=== PATIENT | female | born 1990 | race Caucasian/White ===

== ENCOUNTER 2018-03-25 23:13 | Emergency (ER) | payer BC ==
[~2018-03-25] VITALS: Ht 160 cm; Wt 108.9 kg
[2018-03-26 00:10] LABS: BASOPHILS ABSOLUTE AUTO 0.03 K/mm3 (0.00-0.23); BASOPHILS PERCENT AUTO 0 % (0-2); EOSINOPHILS ABSOLUTE AUTO 0.04 K/mm3 (0.00-0.68); EOSINOPHILS PERCENT AUTO 0 % (0-6); Hematocrit 42.2 % (33.0-51.0); Hemoglobin 13.9 g/dL (11.5-16.0); IMMATURE GRAN ABSOLUTE AUTO 0.03 K/mm3 (0.00-0.10); IMMATURE GRAN PERCENT AUTO 0 % (0-1); LYMPHOCYTES ABSOLUTE AUTO 1.71 K/mm3 (0.84-5.20); LYMPHOCYTES PERCENT AUTO 13 % (21-46); MONOCYTES ABSOLUTE AUTO 0.78 K/mm3 (0.16-1.47); MONOCYTES PERCENT AUTO 6 % (4-13); Mean Corpuscular HGB 29.5 pg (26.0-34.0); Mean Corpuscular HGB Conc 32.9 g/dL (31.5-36.5); Mean Corpuscular Volume 90 fL (80-100); NEUTROPHILS ABSOLUTE AUTO 10.43 K/mm3 (1.96-9.15); NEUTROPHILS PERCENT AUTO 80 % (41-73); Platelet Count 349 K/mm3 (150-400); RDW Standard Deviation 39.6 fL (35.1-46.3); Red Blood Cell Count 4.71 M/mm3 (3.80-5.20); White Blood Cell Count 13.02 K/mm3 (4.00-11.30)
[2018-03-26 00:28] LABS: Alanine Aminotransfer (ALT/SGP 73 U/L (12-78); Albumin, Blood 3.7 g/dL (3.4-5.0); Alk Phos 56 U/L (50-136); Anion Gap 11 mmol/L (6-16); Aspartate Aminotrans (AST/SGOT 29 U/L (12-37); Bilirubin, Total 0.5 mg/dL (0.1-1.0); Blood Urea Nitrogen 7 mg/dL (8-24); Bun/Creatinine Ratio 11.5 (12.0-20.0); CO2, Blood 21 mmol/L (21-32); Calcium, Blood 8.7 mg/dL (8.5-10.1); Chloride, Blood 107 mmol/L (98-108); Creatinine, Blood 0.61 mg/dL (0.40-1.00); Globulin, Blood 3.8 g/dL (2.2-4.0); Glomerular Filtration Rate >60 (60-); Glucose, Blood 92 mg/dL (70-99); Potassium, Blood 3.7 mmol/L (3.5-5.5); Sodium, Blood 139 mmol/L (136-145); Total Protein, Blood 7.5 g/dL (6.4-8.2)
[2018-03-26] MEDS ORDERED: Verotin-Gr Cap1 EACH PO (01:46)
[2018-03-26 03:32] LABS: Source, Urine Clean Catch
[2018-03-26 03:34] LABS: Blood, Urine 1+ (Neg); Glucose Qualitative, Urine Neg (Neg); Ketones, Urine 4+ (Neg); Leukocyte Esterase, Urine 1+ (Neg); Nitrite, Urine Pos (Neg); Protein, Urine 2+ (Neg); Urobilinogen, Urine 2+ (Normal)
[2018-03-26 03:36] LABS: Appearance, Urine Hazy (Clear); Bilirubin, Urine 1+ (Neg); Color, Urine Amber (P-Yellow)
[2018-03-26 03:41] LABS: Amorphous Light (0-Heavy); Bacteria Few /hpf; Mucus Mod (0-Heavy); Red Blood Cells, Urine 0-2 /hpf (0-2); Squamous Epithelial Cells Few /hpf (Few)
== END 2018-03-26 05:28 | disposition home or self-care (01) ==
LOC: ER 23:13
PROVIDERS: Emergency Medicine
DX: O21.9 Vomiting of pregnancy, unspecified (principal); O23.41 Unspecified infection of urinary tract in pregnancy, first trimester; Z3A.10 10 weeks gestation of pregnancy; Z79.899 Other long term (current) drug therapy
CPT/HCPCS: 36415; 80053; 81001; 81025; 85025; 87086; 96361; 96374; 96375; 99283; J2405; J3490; J7030

== ENCOUNTER → 2018-03-29 | Outpatient (CLI) | payer BC ==
[~2018-03-29] MED LIST: Verotin-Gr Cap1 EACH PO
[2018-04-12 12:28] LABS: CHLAMYDIA BY NAA Negative (Negative); GONOCOCCUS BY NAA Negative (Negative); TRICH VAG BY NAA Negative (Negative)
== END | disposition home or self-care (01) ==
LOC: LAB 15:46 → LAB SHORT 15:46
PROVIDERS: Obstetrics & Gynecology
DX: Z36.89 Encounter for other specified antenatal screening (principal)
CPT/HCPCS: 87491; 87591; 87661; G0123

== ENCOUNTER → 2018-09-23 | Outpatient (CLI) | payer BC ==
[~2018-09-23] MED LIST changes: +Amoxicillin875 MG PO; +BENA20 PO; +FURO40 PO; +Ferrous Sulfat325 M2 PO; +Humalog100 UNIT/1; +IBUP800; +METO25ER PO; +POTA10T PO; +Percocet 5-3251 EACH PO; +TUMS DUAL ACTI1 EACH PO; +UNISOM25 MG PO
== END | disposition home or self-care (01) ==
LOC: LAB 17:02 → LAB SHORT 17:02
DX: Z34.00 Encounter for supervision of normal first pregnancy, unspecified trimester (principal)
CPT/HCPCS: 87081; 87653

== ENCOUNTER 2018-10-12 15:20 | Inpatient (IN) | payer BC ==
[~2018-10-12] VITALS: Ht 160 cm; Wt 118.8 kg
[~2018-10-12 15:20] MED LIST changes: -Amoxicillin875 MG PO; -BENA20 PO; -FURO40 PO; -Ferrous Sulfat325 M2 PO; -Humalog100 UNIT/1; -IBUP800; -METO25ER PO; -POTA10T PO; -Percocet 5-3251 EACH PO; -TUMS DUAL ACTI1 EACH PO; -UNISOM25 MG PO
[2018-10-12] MEDS ORDERED: Humalog100 UNIT/1 (17:07)
[2018-10-12] MEDS ORDERED: UNISOM25 MG PO (17:07)
[2018-10-12] MEDS ORDERED: TUMS DUAL ACTI1 EACH PO (17:08)
[2018-10-12 17:12] LABS: BASOPHILS ABSOLUTE AUTO 0.02 K/mm3 (0.00-0.23); BASOPHILS PERCENT AUTO 0 % (0-2); EOSINOPHILS ABSOLUTE AUTO 0.05 K/mm3 (0.00-0.68); EOSINOPHILS PERCENT AUTO 1 % (0-6); Hematocrit 34.2 % (33.0-51.0); Hemoglobin 10.7 g/dL (11.5-16.0); IMMATURE GRAN ABSOLUTE AUTO 0.05 K/mm3 (0.00-0.10); IMMATURE GRAN PERCENT AUTO 1 % (0-1); LYMPHOCYTES ABSOLUTE AUTO 1.04 K/mm3 (0.84-5.20); LYMPHOCYTES PERCENT AUTO 10 % (21-46); MONOCYTES ABSOLUTE AUTO 0.75 K/mm3 (0.16-1.47); MONOCYTES PERCENT AUTO 7 % (4-13); Mean Corpuscular HGB Conc 31.3 g/dL (31.5-36.5); Mean Corpuscular Volume 86 fL (80-100); Mean Platelet Volume 12.4 fL (9.1-12.4); NEUTROPHILS ABSOLUTE AUTO 8.47 K/mm3 (1.96-9.15); NEUTROPHILS PERCENT AUTO 82 % (41-73); Platelet Count 253 K/mm3 (150-400); RDW Standard Deviation 43.7 fL (35.1-46.3); Red Blood Cell Count 3.97 M/mm3 (3.80-5.20); White Blood Cell Count 10.38 K/mm3 (4.00-11.30)
--- NOTE | 2018-10-12 17:24 | NUR ---
LABS DRAWN FROM IV START PER PROTOCOL
--- NOTE | 2018-10-12 21:19 | NUR ---
CBG OF 79 DID NOT FLOW TO [facility]
--- NOTE | 2018-10-13 01:56 | NUR ---
10/13/18 0156 Shanna Nagy PT ENTERED OR WITH MCLEOD CATHETER AND MEFOXIN 2GM STARTED AT 0126
[2018-10-13 01:57] LABS: PCO2 Cord - Arterial 49.5 mmHg (40-50)
[2018-10-13 01:59] LABS: PCO2 Cord - Venous 38.7 mmHg (40-50); PO2 Cord - Venous 24.8 mmHg (28-32); pH Umbilical Cord - Venous 7.35 (7.26-7.35)
--- NOTE | 2018-10-13 02:07 | NUR ---
10/13/18 0130: RT ON STAND BY FOR FOR FAILURE TO PROGRESS. ALL EQUIPMENT AND WARMER WAS CHECK PRIOR TO AND FUCTIONING PROPERLY. BABY BORN AT 0146, HAD GOOD STRONG INITIAL CRY. BABY WAS LORELEI TO WARMER AND WAS DRIED AND STIMULATED BY RT AND RN. BABY HAD GOOD CRY, STRONG RESP EFFORT, GOOD TONE, HR IS 150, SOME ACROCYNOSIS NOTED IN LEGS/FEET AND HANDS. NO RESP INTERVENTIONS NEEDED AT THIS TIME, BABY WAS TRANSITIONING WELL. CORDS WERE TAKEN FOR BLOOD GASES. RT PRESENT AT : ANAND, [employer]
[2018-10-13 08:38] LABS: Hematocrit 29.2 % (33.0-51.0); Hemoglobin 9.1 g/dL (11.5-16.0); Mean Corpuscular HGB 26.8 pg (26.0-34.0); Mean Corpuscular HGB Conc 31.2 g/dL (31.5-36.5); Mean Corpuscular Volume 86 fL (80-100); Mean Platelet Volume 12.5 fL (9.1-12.4); Platelet Count 243 K/mm3 (150-400); RDW Coefficient Variation 14.2 % (11.7-14.2); RDW Standard Deviation 44.3 fL (35.1-46.3); White Blood Cell Count 12.58 K/mm3 (4.00-11.30)
--- NOTE | 2018-10-13 14:43 | NUR ---
ASSIST BABY SLEEPING IN MOM'S ARMS, RN REPORTS BABY LATCHES WELL BKUT BABY ONLY SUCKS FOR ABOUT 10 SUCKS OR SO THEN GOES BACK TO SLEEP. DEMONSTRATED HAND EXPRESSION OF CLOSTROM AND SPOON FEEDING. IF BABY ONLY NURSES FOR A MINUTE OR SO. MOM CAN HAND EXPRESS AND SPOON FEED IF SHE DESIRES. DEMONSTRAED PILLOW PLACEMENT FOR FOKOTBALL HOLD. NEW BEGINNINGS BOOK AND BOOK DEMONSTRATED. GENERAL ED DONE. I ENCOURAGE MOM TO MASSAGE BREASTS DURING FEEDING TO TRY TO KEEP BABY SUCKING FOR A LONGER PERIODS.
--- NOTE | 2018-10-13 16:23 | NUR ---
navas dcd, pas off, pt was wanting to get up to shower, but couldnt stand for very long. bed change, deepthi care done, pt is aware that needs to void in 6 hours, pt requested navas out and to shower, she didnt realize it would hurt so much getting up. pt was medicated 1 hr ago with tordal and 2 hrs with 2 percocet, will gt pt up with in 6 hrs to void
--- NOTE | 2018-10-15 09:25 | NUR ---
ASSIST MOM HAS SOME BRUISING ON NIPPLES, BABY IS SLEEPING SOUNDLY AT THIS TIME. DEMONSTRATED HOLDS, COMPRESSING NIPPLES AND HOLDS. DISCUSSED CORRECT MOUTH PLACEMENT. MOM TO CALL WHEN BABY LATCHES FOR ASSIST IF NEEDED. MOM IS CONCERNED THAT SHE MAY GET BREAK DOWN ON NIPPLES. PT. IS AWARE THAT IF SHE DOES GET BLEEDING ON NIPPLES SHE WILL HAVE TO PUMP AND DUMP. I WILLCHECK BACK LATER AND HOPEFULLY OBSEREVE LATCH. BOTH PARENTS VERY INVOMVED WITH BABY. I ENCOURAGED SKIN TO SKIN WHEN MOM IS AWAKE.
--- NOTE | 2018-10-15 12:48 | NUR ---
DISCHARGE INSTRUCTIONS REVIEWED WITH PATIENT. ALL QUESTIONS AND CONCERNS ANSWERED.
[2018-10-15] MEDS ORDERED: IBUP800 (12:49)
[2018-10-15] MEDS ORDERED: Percocet 5-3251 EACH PO (12:50)
--- NOTE | 2018-10-15 13:59 | NUR ---
PATIENT DISCHARGED HOME AND WAS ESCORTED TO HER VEHICLE AT 1335.
== END 2018-10-15 13:40 | disposition home or self-care (01) | DRG 788 ==
LOC: OBS 15:20 → BC 15:23 → OBS 15:31 → BC 15:33
PROVIDERS: Obstetrics & Gynecology; ADMIT Obstetrics & Gynecology
PROC: 3E0R3BZ Introduction of Anesthetic Agent into Spinal Canal, Percutaneous Approach (ICD-10-PCS; 2018-10-13)
PROC: 10D00Z1 Extraction of Products of Conception, Low, Open Approach (ICD-10-PCS; principal; 2018-10-13 01:30)
DX: O24.424 Gestational diabetes mellitus in childbirth, insulin controlled (principal); Z3A.38 38 weeks gestation of pregnancy; Z37.0 Single live birth; O62.1 Secondary uterine inertia; O36.63X0 Maternal care for excessive fetal growth, third trimester, not applicable or unspecified
CPT/HCPCS: 36415; 51702; 82803; 82947; 85025; 85027; 86850; 86900; 86901; C9113; J0694; J1885; J2405; J2590; J2765; J3010; J7120

== ENCOUNTER 2018-10-17 12:46 | Inpatient (IN) | payer BC ==
[~2018-10-17] VITALS: Ht 160 cm; Wt 114.1 kg
[~2018-10-17 12:46] MED LIST changes: +Humalog100 UNIT/1; +IBUP800; +Percocet 5-3251 EACH PO; +TUMS DUAL ACTI1 EACH PO; +UNISOM25 MG PO
[2018-10-17] MEDS ORDERED: Ferrous Sulfat325 M2 PO (13:14)
[2018-10-17 13:35] LABS: BASOPHILS ABSOLUTE AUTO 0.03 K/mm3 (0.00-0.23); BASOPHILS PERCENT AUTO 0 % (0-2); EOSINOPHILS ABSOLUTE AUTO 0.17 K/mm3 (0.00-0.68); EOSINOPHILS PERCENT AUTO 2 % (0-6); Hematocrit 33.7 % (33.0-51.0); Hemoglobin 10.1 g/dL (11.5-16.0); IMMATURE GRAN ABSOLUTE AUTO 0.09 K/mm3 (0.00-0.10); IMMATURE GRAN PERCENT AUTO 1 % (0-1); LYMPHOCYTES ABSOLUTE AUTO 0.88 K/mm3 (0.84-5.20); LYMPHOCYTES PERCENT AUTO 8 % (21-46); MONOCYTES ABSOLUTE AUTO 0.63 K/mm3 (0.16-1.47); MONOCYTES PERCENT AUTO 6 % (4-13); Mean Corpuscular HGB 26.8 pg (26.0-34.0); Mean Platelet Volume 10.9 fL (9.1-12.4); NEUTROPHILS ABSOLUTE AUTO 8.88 K/mm3 (1.96-9.15); NEUTROPHILS PERCENT AUTO 83 % (41-73); Platelet Count 387 K/mm3 (150-400); RDW Coefficient Variation 14.6 % (11.7-14.2); RDW Standard Deviation 47.1 fL (35.1-46.3); Red Blood Cell Count 3.77 M/mm3 (3.80-5.20); White Blood Cell Count 10.68 K/mm3 (4.00-11.30)
[2018-10-17 13:38] LABS: Mean Corpuscular Volume 89 fL (80-100)
[2018-10-17 13:50] LABS: Creatinine (POC) 0.4 mg/dL (0.6-1.0)
[2018-10-17 13:52] LABS: Alanine Aminotransfer (ALT/SGP 44 U/L (12-78); Albumin, Blood 2.3 g/dL (3.4-5.0); Albumin/Globulin Ratio 0.6 (0.8-1.8); Alk Phos 117 U/L (50-136); Anion Gap 11 mmol/L (6-16); Aspartate Aminotrans (AST/SGOT 46 U/L (12-37); Bilirubin, Total 0.3 mg/dL (0.1-1.0); Blood Urea Nitrogen 8 mg/dL (8-24); Bun/Creatinine Ratio 15.3 (12.0-20.0); CO2, Blood 21 mmol/L (21-32); Calcium, Blood 7.7 mg/dL (8.5-10.1); Chloride, Blood 112 mmol/L (98-108); Creatinine, Blood 0.52 mg/dL (0.40-1.00); Globulin, Blood 4.1 g/dL (2.2-4.0); Glomerular Filtration Rate >60 (60-); Glucose, Blood 98 mg/dL (70-99); Potassium, Blood 3.4 mmol/L (3.5-5.5); Sodium, Blood 144 mmol/L (136-145); Total Protein, Blood 6.4 g/dL (6.4-8.2)
--- NOTE | 2018-10-17 18:08 | NUR ---
SHIFT SUMMARY PATIENT TO THE FLOOR IN THE 1600 HOUR. SHE HAD THE VENOUS DOPPLER STUDY THAT WAS NEGATIVE FOR DVT IN THAT LEFT LEG. PATIENT NOTING MILD PAIN RELATED TO C SECTION 4 DAYS AGO. SHE IS STILL BLEEDING FROM HER DELIVERY. SHE HAS AN ABDOMINAL SURGICAL SITE, SHE WORRIES IT COULD GET DEHISCED. MEDICATE WITH IBUPROFEN 800MG Q8 PRN. MONITOR FOR CHANGES.
[2018-10-17 23:38] LABS: Source, Urine Voided
[2018-10-17 23:41] LABS: Appearance, Urine Clear (Clear); Bilirubin, Urine Neg (Neg); Blood, Urine 5+ (Neg); Color, Urine Yellow (P-Yellow); Glucose Qualitative, Urine Neg (Neg); Ketones, Urine 4+ (Neg); Leukocyte Esterase, Urine 3+ (Neg); Nitrite, Urine Neg (Neg); Protein, Urine 2+ (Neg); Urobilinogen, Urine NORM (Normal)
[2018-10-17 23:48] LABS: Red Blood Cells, Urine 25-50 /hpf (0-2); Squamous Epithelial Cells Few /hpf (Few)
[2018-10-17 23:49] LABS: Bacteria Many /hpf
[2018-10-18 04:51] LABS: BASOPHILS ABSOLUTE AUTO 0.03 K/mm3 (0.00-0.23); BASOPHILS PERCENT AUTO 0 % (0-2); EOSINOPHILS ABSOLUTE AUTO 0.17 K/mm3 (0.00-0.68); EOSINOPHILS PERCENT AUTO 2 % (0-6); Hemoglobin 10.3 g/dL (11.5-16.0); IMMATURE GRAN ABSOLUTE AUTO 0.11 K/mm3 (0.00-0.10); IMMATURE GRAN PERCENT AUTO 1 % (0-1); LYMPHOCYTES ABSOLUTE AUTO 1.26 K/mm3 (0.84-5.20); LYMPHOCYTES PERCENT AUTO 12 % (21-46); MONOCYTES ABSOLUTE AUTO 0.69 K/mm3 (0.16-1.47); MONOCYTES PERCENT AUTO 7 % (4-13); Mean Corpuscular HGB 26.1 pg (26.0-34.0); Mean Corpuscular HGB Conc 30.3 g/dL (31.5-36.5); Mean Platelet Volume 10.8 fL (9.1-12.4); NEUTROPHILS ABSOLUTE AUTO 8.34 K/mm3 (1.96-9.15); NEUTROPHILS PERCENT AUTO 79 % (41-73); Platelet Count 410 K/mm3 (150-400); RDW Coefficient Variation 14.6 % (11.7-14.2); RDW Standard Deviation 45.4 fL (35.1-46.3); Red Blood Cell Count 3.94 M/mm3 (3.80-5.20)
[2018-10-18 04:56] LABS: Mean Corpuscular Volume 86 fL (80-100)
[2018-10-18 05:37] LABS: Anion Gap 11 mmol/L (6-16); Blood Urea Nitrogen 8 mg/dL (8-24); CO2, Blood 24 mmol/L (21-32); Calcium, Blood 7.5 mg/dL (8.5-10.1); Chloride, Blood 108 mmol/L (98-108); Creatinine, Blood 0.54 mg/dL (0.40-1.00); Glomerular Filtration Rate >60 (60-); Glucose, Blood 89 mg/dL (70-99); Sodium, Blood 143 mmol/L (136-145)
--- NOTE | 2018-10-18 05:47 | NUR ---
SHIFT SUMMARY PT ADMITTED FOR ACUTE RESP FAILURE WITH HYOXEMIA AND PENUMONIA. FULL CODE. REGULAR DIET. SCDS. 2 L O2 VIA NC. PT IS 5 DAYS POST FOLLOWING AN EMERGENCY . PT IS AND MEDICATIONS ARE BELING LIMITED R/T THIS. PT IS INDEPENDENT, ALERT, ORIENTED, AND PLEASENT. 20 G IV TO R AC. MEDS WHOLE. DOPPLER WAS NEGATIVE FOR DVT. NO PE PER CT. CT ALSO SHOWED GROUNDGLASS APPEARANCE IN THE LUNGS WITH PLEURAL EFFUSIONS SUGGESTIVE OF VASCULAR CONGESTIONS AND FLUID OVERLOAD. THE PT IS VERY TEARFUL, ASKING QUESTIONS THAT ARE SIMILAR REPEADEDLY. IT APPEARS THAT ANXIETY FROM CURRENT MEDICAL STATUS IS INTERFERING WITH PTS ABILITY TO UNDERSTAND EDUCATION. PT WITH NOTED DIFFICULTY BREATHING, SITTING AT BEDSIDE WITH LEGS DEPENDENT AND PT STATES THAT SHE CANNOT BREATHE WHEN LAYING IN BED. ASSISTED PT TO TRIPOD OVER BEDSIDE TABLE AND CALL TO RT TO EVALUATE TO ENSURE THAT PROBLEM WAS FLUID OVERLOAD SUSPECTED BY THIS NURSE AND NOT A RESPIRATORY ISSUE. RT AGREED. CALL TO HOSPITALIST TO OBTAIN ORDER FOR LAZIX 40 MG IV NOW. THE PT CONTINUED TO TRIPOD OVER THE BED WITH FEET HANGING AT BEDSIDE. THE PT WILL HAVE A LOT OF QUESTION FOR THE MD THIS AM. NO APPARENT SIGNS OF ACUTE DISTRESS ABLE TO MAKE NEEDS KNOWN AND CALL LIGHT IN REACH.
[2018-10-18] MEDS ORDERED: FURO40 PO (09:55)
[2018-10-18] MEDS ORDERED: Amoxicillin875 MG PO (09:55)
--- NOTE | 2018-10-18 10:33 | NUR ---
SUMMARY/DISCHARGE PT DISCHARGED TO HOME, PT AND SPOUSE VERBALIZED UNDERSTANDING OF DISCHARGE INSTRUCTIONS REGARDING MEDICATIONS AND FOLLOW UP, PT DECLINED A WHEELCHAIR AND WAS ABLE TO AMBULATE SAFELY WITH HER SPOUSE TO THE ELEVATOR
== END 2018-10-18 10:09 | disposition home or self-care (01) | DRG 776 ==
LOC: ER 12:46 → MEDS 15:08 → ENPENDDIS 10-18 10:08 → MEDS 10-18 10:09
PROVIDERS: Emergency Medicine; Internal Medicine; ADMIT Internal Medicine
DX: O99.53 Diseases of the respiratory system complicating the puerperium (principal); J96.01 Acute respiratory failure with hypoxia; I50.31 Acute diastolic (congestive) heart failure; O99.43 Diseases of the circulatory system complicating the puerperium; Z87.891 Personal history of nicotine dependence
CPT/HCPCS: 36415; 71260; 80048; 80053; 81001; 82565; 83880; 84145; 85025; 87086; 93005; 93010; 93971; 96374; 96375; 99285-25; J0295; J0456; J1940; J2543; J7050; Q9967

== ENCOUNTER 2018-10-19 12:30 | Observation (INO) | payer BC ==
[~2018-10-19] VITALS: Ht 160 cm; Wt 101.2 kg
[~2018-10-19 12:30] MED LIST changes: +Amoxicillin875 MG PO; +FURO40 PO; +Ferrous Sulfat325 M2 PO
[2018-10-19 14:53] LABS: BASOPHILS ABSOLUTE AUTO 0.03 K/mm3 (0.00-0.23); BASOPHILS PERCENT AUTO 0 % (0-2); EOSINOPHILS ABSOLUTE AUTO 0.11 K/mm3 (0.00-0.68); EOSINOPHILS PERCENT AUTO 1 % (0-6); Hematocrit 34.1 % (33.0-51.0); Hemoglobin 10.4 g/dL (11.5-16.0); IMMATURE GRAN ABSOLUTE AUTO 0.13 K/mm3 (0.00-0.10); IMMATURE GRAN PERCENT AUTO 1 % (0-1); LYMPHOCYTES PERCENT AUTO 11 % (21-46); MONOCYTES ABSOLUTE AUTO 0.58 K/mm3 (0.16-1.47); MONOCYTES PERCENT AUTO 6 % (4-13); Mean Corpuscular HGB 26.9 pg (26.0-34.0); Mean Corpuscular HGB Conc 30.5 g/dL (31.5-36.5); Mean Corpuscular Volume 88 fL (80-100); Mean Platelet Volume 10.6 fL (9.1-12.4); NEUTROPHILS ABSOLUTE AUTO 7.28 K/mm3 (1.96-9.15); NEUTROPHILS PERCENT AUTO 80 % (41-73); Platelet Count 455 K/mm3 (150-400); RDW Coefficient Variation 14.6 % (11.7-14.2); RDW Standard Deviation 46.6 fL (35.1-46.3); Red Blood Cell Count 3.87 M/mm3 (3.80-5.20); White Blood Cell Count 9.13 K/mm3 (4.00-11.30)
[2018-10-19 15:04] LABS: Alanine Aminotransfer (ALT/SGP 46 U/L (12-78); Albumin, Blood 2.5 g/dL (3.4-5.0); Albumin/Globulin Ratio 0.6 (0.8-1.8); Alk Phos 96 U/L (50-136); Anion Gap 13 mmol/L (6-16); Aspartate Aminotrans (AST/SGOT 23 U/L (12-37); Bilirubin, Total 0.3 mg/dL (0.1-1.0); Blood Urea Nitrogen 8 mg/dL (8-24); Bun/Creatinine Ratio 13.1 (12.0-20.0); CO2, Blood 22 mmol/L (21-32); Calcium, Blood 7.7 mg/dL (8.5-10.1); Chloride, Blood 111 mmol/L (98-108); Creatinine, Blood 0.61 mg/dL (0.40-1.00); Globulin, Blood 4.1 g/dL (2.2-4.0); Glomerular Filtration Rate >60 (60-); Glucose, Blood 95 mg/dL (70-99); Potassium, Blood 3.1 mmol/L (3.5-5.5); Sodium, Blood 146 mmol/L (136-145); Total Protein, Blood 6.6 g/dL (6.4-8.2)
--- NOTE | 2018-10-19 20:20 | NUR ---
2020 ADMIT: PT ARRIVES TO ROOM 233 VIA WC FROM ER WITH AT SIDE AND TRANSFERS SELF TO SIT ON SIDE OF BED. APPEARS STEADY ON FEET, NO OBVIOUS S/S OF RESPIRATORY DISTRESS AND PT DENIES PAIN, N/V, DIZZINESS OR SOB WITH MOVEMENT. PT AND SPOUSE ORIENTED TO ROOM, BED, POLICIES, PROPOSED PLAN OF CARE AND CALL SYSTEM.
--- NOTE | 2018-10-19 20:29 | NUR ---
pt gave consent for nursing home social worker to care for her 10/20/18
--- NOTE | 2018-10-20 03:51 | NUR ---
0350: CONSULTS FOR DR. MOELLER AND CARDIOLOGY (DR. FENG) CALLED AND ANSWERING SERVICE WITH DELIVER MESSAGES AT 0700.
[2018-10-20 05:24] LABS: Anion Gap 13 mmol/L (6-16); Blood Urea Nitrogen 8 mg/dL (8-24); Bun/Creatinine Ratio 13.7 (12.0-20.0); CO2, Blood 25 mmol/L (21-32); Calcium, Blood 7.7 mg/dL (8.5-10.1); Chloride, Blood 106 mmol/L (98-108); Creatinine, Blood 0.59 mg/dL (0.40-1.00); Glomerular Filtration Rate >60 (60-); Glucose, Blood 76 mg/dL (70-99); Potassium, Blood 2.7 mmol/L (3.5-5.5); Sodium, Blood 144 mmol/L (136-145)
--- NOTE | 2018-10-20 06:27 | NUR ---
SUMMARY: NEW ADMIT ON HOSPITALIST SERVICE FOR ACUTE CHF WITH CARDIOLOGY AND DR. MOELLER CONSULTS CALLED BY THIS RN. VSS, AFEBRILE, ROOM AIR. PT DENIES INTOLERABLE ABD PAIN OR CHEST PAIN, SOB. BLE APPEARS TO HAVE 2+ PITTING EDEMA WITH PPP AND SENSATIONS INTACT. PT SLEEPS SITTING UP TO CHAIR WITH FEET PROPPED ON STOOL AND SCD'S TO BLE. VOIDING CLEAR, YELLOW URINE. AWAIT CONSULTS COMPLETION.
--- NOTE | 2018-10-20 16:36 | NUR ---
SHIFT SUMMARY NO ACUTE CHANGES TODAY. VSS. CARDIOLOGY CONSULT COMPLETE AND PLAN IS TO CONTINUE TX OF IV LASIX AND K+ SUPPLEMENTATION. INCISION TO LOWER ABD REMAINS CDI. PT INDEP IN ROOM. DENIES NEED FOR PAIN MEDICATIONS. CALL LIGHT WITHIN REACH. WILL CONT TO MONITOR.
[2018-10-21 04:31] LABS: Albumin, Blood 2.5 g/dL (3.4-5.0); Anion Gap 10 mmol/L (6-16); Blood Urea Nitrogen 10 mg/dL (8-24); Bun/Creatinine Ratio 17.5 (12.0-20.0); CO2, Blood 27 mmol/L (21-32); Calcium, Blood 7.5 mg/dL (8.5-10.1); Chloride, Blood 108 mmol/L (98-108); Creatinine, Blood 0.57 mg/dL (0.40-1.00); Glomerular Filtration Rate >60 (60-); Glucose, Blood 85 mg/dL (70-99); Phosphorus, Blood 3.9 mg/dL (2.5-4.9); Sodium, Blood 145 mmol/L (136-145)
--- NOTE | 2018-10-21 06:44 | NUR ---
SUMMARY PT WITH WITH DECREASED EDEMA AND WEIGHT LOSS NOTED PER STANDING SCALE. PT REPORTS FEELING BETTER. ABD INC INTACT WITH STRIPS/DRY ABD ABOVE INC HEAVY AND MODERATE FIRMNESS NOTED.VAG BLEEDING NOTED MILD TO MOD PER MY CHECK OF PTS JORGE LUIS PADS.PT WITH NO REPORT OF CP TONIGHT AND REPORTS SOB IMPROVING.
--- NOTE | 2018-10-21 11:07 | NUR ---
PT DID NOT REC'V AM LASIX DUE TO NO IV ACCESS. DR NOTIFIED.
--- NOTE | 2018-10-21 11:12 | NUR ---
TIGHTNESS IN UPPER CHEST VSS. TELE NSR. NOTIIFIED ORDERS OBTAINED. PT DENIES PAIN OR SOB.
--- NOTE | 2018-10-21 14:47 | NUR ---
TIGHTNESS IN CHEST, TINGLING TO BACK PT REPORTING TIGHTNESS IN CHEST, STATES FELT LIKE SWALLOWED SOMETHING REALLY BIG. REPORTS TINGLING IN BACK. VSS. EKG UNCHANGED. TROPONIN WNL. PT DOES NOT REPORT FEELING ANXIOUS BUT DISCUSSED POSSIBILITY W/DR JAMES.
--- NOTE | 2018-10-21 15:45 | NUR ---
PT BACK FROM IMAGING. SS IN ROOM W/PT. PROVIDED WARM BLANKET.
--- NOTE | 2018-10-21 18:19 | NUR ---
SUMMARY PT'S VSS T/O SHIFT. PT C/O OF TIGHTNESS IN CHEST. REPORTED TO DR JAMES AND ORDERS OBTAINED. EKG REMAINED UNCHANGED FROM PREVIOUS. TROPONIN WNL. LUNGS CLEAR BUT DIM IN BASES. PT DENIED ANXIETY. PT INDEPENDENT IN ROOM. DENIES PAIN OR SOB. PLEASANT AND COOPERATIVE. PLAN TO DC TOMORROW.
--- NOTE | 2018-10-22 07:21 | NUR ---
SUMMARY PT SLEPT TONIGHT. DENIES CP OR SOB. EDEMA DECREASED.
[2018-10-22] MEDS ORDERED: BENA20 PO (10:08)
[2018-10-22] MEDS ORDERED: METO25ER PO (10:12)
[2018-10-22] MEDS ORDERED: POTA10T PO (10:13)
--- NOTE | 2018-10-22 10:36 | NUR ---
DISCHARGED PT DISCHARGED. HAS APPOINTMENT W/DR ALAMO ON October. FAXED PRESCRIPTIONS TO [facility] ON [address]. REVIEWED DC INSTRUCTIONS W/PT. VERBALIZED UNDERSTANDING OF INSTRUCTIONS, MEDS AND FOLLOW UP. LEFT UNIT BY AMBULATION ACCOMPANIED BY SPOUSE W/DC INSTRUCTIONS AND POSSESSIONS IN HAND.
== END 2018-10-22 10:38 | disposition home or self-care (01) ==
LOC: ER 12:30 → SURS 17:19 → ERHOLD 17:19 → SURS 19:54
PROVIDERS: Emergency Medicine; ADMIT Family Medicine
DX: O90.3 Peripartum cardiomyopathy (principal); I50.21 Acute systolic (congestive) heart failure; I34.0 Nonrheumatic mitral (valve) insufficiency; O86.22 Infection of bladder following delivery; O90.81 Anemia of the puerperium; O99.285 Endocrine, nutritional and metabolic diseases complicating the puerperium; E87.6 Hypokalemia; E87.0 Hyperosmolality and hypernatremia; E66.9 Obesity, unspecified; O90.89 Other complications of the puerperium, not elsewhere classified; D47.3 Essential (hemorrhagic) thrombocythemia; Z91.048 Other nonmedicinal substance allergy status; Z79.899 Other long term (current) drug therapy; Z68.41 Body mass index [BMI] 40.0-44.9, adult; Z87.891 Personal history of nicotine dependence
CPT/HCPCS: 36415; 71046; 80048; 80053; 80069; 83880; 84132; 84484; 85025; 93005; 93010; 93306; 96374; 96376; 99285-25; G0378; J1940

== ENCOUNTER 2018-11-07 16:57 | Emergency (ER) | payer BC ==
[~2018-11-07] VITALS: Ht 160 cm; Wt 94.3 kg
[~2018-11-07 16:57] MED LIST changes: +BENA20 PO; +METO25ER PO; +POTA10T PO
[2018-11-07 18:30] LABS: BASOPHILS ABSOLUTE AUTO 0.02 K/mm3 (0.00-0.23); BASOPHILS PERCENT AUTO 0 % (0-2); EOSINOPHILS PERCENT AUTO 1 % (0-6); Hematocrit 43.7 % (33.0-51.0); Hemoglobin 12.8 g/dL (11.5-16.0); IMMATURE GRAN ABSOLUTE AUTO 0.02 K/mm3 (0.00-0.10); IMMATURE GRAN PERCENT AUTO 0 % (0-1); LYMPHOCYTES ABSOLUTE AUTO 2.05 K/mm3 (0.84-5.20); LYMPHOCYTES PERCENT AUTO 27 % (21-46); MONOCYTES ABSOLUTE AUTO 0.49 K/mm3 (0.16-1.47); MONOCYTES PERCENT AUTO 7 % (4-13); Mean Corpuscular HGB 26.2 pg (26.0-34.0); Mean Corpuscular HGB Conc 29.3 g/dL (31.5-36.5); Mean Corpuscular Volume 89 fL (80-100); NEUTROPHILS ABSOLUTE AUTO 4.89 K/mm3 (1.96-9.15); NEUTROPHILS PERCENT AUTO 65 % (41-73); Platelet Count 401 K/mm3 (150-400); RDW Coefficient Variation 15.6 % (11.7-14.2); RDW Standard Deviation 51.2 fL (35.1-46.3); Red Blood Cell Count 4.89 M/mm3 (3.80-5.20); White Blood Cell Count 7.57 K/mm3 (4.00-11.30)
[2018-11-07 18:50] LABS: Alanine Aminotransfer (ALT/SGP 29 U/L (12-78); Albumin, Blood 3.6 g/dL (3.4-5.0); Albumin/Globulin Ratio 0.9 (0.8-1.8); Alk Phos 86 U/L (50-136); Anion Gap 9 mmol/L (6-16); Aspartate Aminotrans (AST/SGOT 14 U/L (12-37); Bilirubin, Total 0.5 mg/dL (0.1-1.0); Blood Urea Nitrogen 8 mg/dL (8-24); Bun/Creatinine Ratio 12.7 (12.0-20.0); CO2, Blood 21 mmol/L (21-32); Calcium, Blood 8.6 mg/dL (8.5-10.1); Chloride, Blood 111 mmol/L (98-108); Creatinine, Blood 0.63 mg/dL (0.40-1.00); Globulin, Blood 3.8 g/dL (2.2-4.0); Glomerular Filtration Rate >60 (60-); Glucose, Blood 114 mg/dL (70-99); Potassium, Blood 3.7 mmol/L (3.5-5.5); Sodium, Blood 141 mmol/L (136-145); Total Protein, Blood 7.4 g/dL (6.4-8.2)
[2018-11-07 18:51] LABS: Troponin I <0.015 ng/mL (0.000-0.040)
== END 2018-11-07 19:33 | disposition home or self-care (01) ==
LOC: ER 16:57
PROVIDERS: Physician Assistant
DX: O90.3 Peripartum cardiomyopathy (principal); O99.89 Other specified diseases and conditions complicating pregnancy, childbirth and the puerperium; R55 Syncope and collapse; Z87.891 Personal history of nicotine dependence
CPT/HCPCS: 36415; 71046; 80053; 83880; 84484; 85025; 93005; 93010; 99284-25

== ENCOUNTER 2018-12-04 20:49 | Emergency (ER) | payer BC ==
[~2018-12-04] VITALS: Ht 160 cm; Wt 93.9 kg
[2018-12-04] MEDS ORDERED: VENL75ER PO (21:09)
[2018-12-04] MEDS ORDERED: LORA1 PO (21:09)
[2018-12-04 22:00] LABS: BASOPHILS ABSOLUTE AUTO 0.03 K/mm3 (0.00-0.23); BASOPHILS PERCENT AUTO 0 % (0-2); EOSINOPHILS ABSOLUTE AUTO 0.12 K/mm3 (0.00-0.68); EOSINOPHILS PERCENT AUTO 1 % (0-6); Hematocrit 44.8 % (33.0-51.0); Hemoglobin 13.6 g/dL (11.5-16.0); IMMATURE GRAN ABSOLUTE AUTO 0.02 K/mm3 (0.00-0.10); IMMATURE GRAN PERCENT AUTO 0 % (0-1); LYMPHOCYTES PERCENT AUTO 33 % (21-46); MONOCYTES ABSOLUTE AUTO 0.52 K/mm3 (0.16-1.47); MONOCYTES PERCENT AUTO 6 % (4-13); Mean Corpuscular HGB 26.9 pg (26.0-34.0); Mean Corpuscular HGB Conc 30.4 g/dL (31.5-36.5); Mean Corpuscular Volume 89 fL (80-100); Mean Platelet Volume 9.9 fL (9.1-12.4); NEUTROPHILS ABSOLUTE AUTO 5.13 K/mm3 (1.96-9.15); NEUTROPHILS PERCENT AUTO 59 % (41-73); Platelet Count 447 K/mm3 (150-400); RDW Coefficient Variation 17.1 % (11.7-14.2); Red Blood Cell Count 5.06 M/mm3 (3.80-5.20); White Blood Cell Count 8.72 K/mm3 (4.00-11.30)
[2018-12-04 22:22] LABS: Alanine Aminotransfer (ALT/SGP 29 U/L (12-78); Albumin, Blood 3.9 g/dL (3.4-5.0); Alk Phos 78 U/L (50-136); Anion Gap 8 mmol/L (6-16); Aspartate Aminotrans (AST/SGOT 8 U/L (12-37); Bilirubin, Total 0.4 mg/dL (0.1-1.0); Blood Urea Nitrogen 10 mg/dL (8-24); Bun/Creatinine Ratio 14.9 (12.0-20.0); CO2, Blood 24 mmol/L (21-32); Calcium, Blood 9.1 mg/dL (8.5-10.1); Chloride, Blood 110 mmol/L (98-108); Creatinine, Blood 0.67 mg/dL (0.40-1.00); Globulin, Blood 3.8 g/dL (2.2-4.0); Glomerular Filtration Rate >60 (60-); Glucose, Blood 82 mg/dL (70-99); Potassium, Blood 3.8 mmol/L (3.5-5.5); Sodium, Blood 142 mmol/L (136-145); Total Protein, Blood 7.7 g/dL (6.4-8.2)
== END 2018-12-05 00:08 | disposition home or self-care (01) ==
LOC: ER 20:49
PROVIDERS: Emergency Medicine
DX: O72.2 Delayed and secondary postpartum hemorrhage (principal); Z91.09 Other allergy status, other than to drugs and biological substances; Z79.899 Other long term (current) drug therapy; Z87.891 Personal history of nicotine dependence
CPT/HCPCS: 80053; 85025; 86900; 86901; 99283

== ENCOUNTER → 2019-01-25 | Outpatient (CLI) | payer BC ==
[~2019-01-25] MED LIST changes: +LORA1 PO; +VENL75ER PO
[2019-01-25 17:51] LABS: BASOPHILS ABSOLUTE AUTO 0.01 K/mm3 (0.00-0.23); BASOPHILS PERCENT AUTO 0 % (0-2); EOSINOPHILS ABSOLUTE AUTO 0.07 K/mm3 (0.00-0.68); EOSINOPHILS PERCENT AUTO 1 % (0-6); Hematocrit 42.7 % (33.0-51.0); Hemoglobin 13.6 g/dL (11.5-16.0); IMMATURE GRAN ABSOLUTE AUTO 0.04 K/mm3 (0.00-0.10); IMMATURE GRAN PERCENT AUTO 0 % (0-1); LYMPHOCYTES ABSOLUTE AUTO 1.89 K/mm3 (0.84-5.20); LYMPHOCYTES PERCENT AUTO 17 % (21-46); MONOCYTES ABSOLUTE AUTO 0.52 K/mm3 (0.16-1.47); MONOCYTES PERCENT AUTO 5 % (4-13); Mean Corpuscular HGB 28.3 pg (26.0-34.0); Mean Corpuscular HGB Conc 31.9 g/dL (31.5-36.5); Mean Corpuscular Volume 89 fL (80-100); Mean Platelet Volume 10.2 fL (9.1-12.4); NEUTROPHILS ABSOLUTE AUTO 8.94 K/mm3 (1.96-9.15); NEUTROPHILS PERCENT AUTO 78 % (41-73); Platelet Count 400 K/mm3 (150-400); RDW Coefficient Variation 15.2 % (11.7-14.2); RDW Standard Deviation 49.1 fL (35.1-46.3); Red Blood Cell Count 4.81 M/mm3 (3.80-5.20); White Blood Cell Count 11.47 K/mm3 (4.00-11.30)
[2019-01-25 18:01] LABS: Percent Saturation 11.7 % (15.0-50.0)
[2019-01-25 18:33] LABS: Alanine Aminotransfer (ALT/SGP 27 U/L (12-78); Albumin, Blood 3.7 g/dL (3.4-5.0); Alk Phos 76 U/L (50-136); Anion Gap 6 mmol/L (6-16); Aspartate Aminotrans (AST/SGOT 11 U/L (12-37); Bilirubin, Total 0.3 mg/dL (0.1-1.0); Blood Urea Nitrogen 10 mg/dL (8-24); Bun/Creatinine Ratio 15.9 (12.0-20.0); CO2, Blood 24 mmol/L (21-32); Calcium, Blood 8.8 mg/dL (8.5-10.1); Chloride, Blood 111 mmol/L (98-108); Creatinine, Blood 0.63 mg/dL (0.40-1.00); Globulin, Blood 3.7 g/dL (2.2-4.0); Glomerular Filtration Rate >60 (60-); Glucose, Blood 129 mg/dL (70-99); Potassium, Blood 3.8 mmol/L (3.5-5.5); Sodium, Blood 141 mmol/L (136-145); Total Protein, Blood 7.4 g/dL (6.4-8.2)
== END ==
LOC: LAB 17:22 → LAB SHORT 17:22
PROVIDERS: Nurse Practitioner Family
DX: D64.9 Anemia, unspecified (principal)
CPT/HCPCS: 80053; 82607; 82746; 83036; 83540; 83550; 85025

== ENCOUNTER 2019-03-28 14:57 | Emergency (ER) | payer BC ==
[~2019-03-28] VITALS: Ht 160 cm; Wt 97.5 kg
[2019-03-28] MEDS ORDERED: Toprol Xl50 MG PO (15:23)
[2019-03-28] MEDS ORDERED: Alprazolam0.25 MG PO (15:24)
[2019-03-28] MEDS ORDERED: L-METHYLFOLATE15 MG PO (15:24)
[2019-03-28 15:39] LABS: BASOPHILS ABSOLUTE AUTO 0.02 K/mm3 (0.00-0.23); BASOPHILS PERCENT AUTO 0 % (0-2); EOSINOPHILS ABSOLUTE AUTO 0.09 K/mm3 (0.00-0.68); EOSINOPHILS PERCENT AUTO 1 % (0-6); Hemoglobin 14.6 g/dL (11.5-16.0); IMMATURE GRAN ABSOLUTE AUTO 0.02 K/mm3 (0.00-0.10); IMMATURE GRAN PERCENT AUTO 0 % (0-1); LYMPHOCYTES PERCENT AUTO 20 % (21-46); MONOCYTES ABSOLUTE AUTO 0.58 K/mm3 (0.16-1.47); MONOCYTES PERCENT AUTO 6 % (4-13); Mean Corpuscular HGB 29.1 pg (26.0-34.0); Mean Corpuscular HGB Conc 32.4 g/dL (31.5-36.5); Mean Corpuscular Volume 90 fL (80-100); Mean Platelet Volume 9.8 fL (9.1-12.4); NEUTROPHILS ABSOLUTE AUTO 7.55 K/mm3 (1.96-9.15); NEUTROPHILS PERCENT AUTO 73 % (41-73); Platelet Count 390 K/mm3 (150-400); RDW Coefficient Variation 13.3 % (11.7-14.2); RDW Standard Deviation 43.5 fL (35.1-46.3); Red Blood Cell Count 5.02 M/mm3 (3.80-5.20); White Blood Cell Count 10.36 K/mm3 (4.00-11.30)
[2019-03-28 15:59] LABS: Alanine Aminotransfer (ALT/SGP 23 U/L (12-78); Albumin, Blood 3.9 g/dL (3.4-5.0); Albumin/Globulin Ratio 1.1 (0.8-1.8); Alk Phos 75 U/L (50-136); Anion Gap 9 mmol/L (6-16); Aspartate Aminotrans (AST/SGOT 8 U/L (12-37); Bilirubin, Total 0.7 mg/dL (0.1-1.0); Blood Urea Nitrogen 8 mg/dL (8-24); Bun/Creatinine Ratio 13.4 (12.0-20.0); CO2, Blood 21 mmol/L (21-32); Calcium, Blood 9.1 mg/dL (8.5-10.1); Chloride, Blood 111 mmol/L (98-108); Globulin, Blood 3.7 g/dL (2.2-4.0); Glomerular Filtration Rate >60 (60-); Glucose, Blood 92 mg/dL (70-99); Potassium, Blood 3.8 mmol/L (3.5-5.5); Sodium, Blood 141 mmol/L (136-145); Total Protein, Blood 7.6 g/dL (6.4-8.2)
== END 2019-03-28 19:07 | disposition home or self-care (01) ==
LOC: ER 14:57
PROVIDERS: Physician Assistant
DX: F41.9 Anxiety disorder, unspecified (principal); T44.7X5A Adverse effect of beta-adrenoreceptor antagonists, initial encounter; Z87.891 Personal history of nicotine dependence
CPT/HCPCS: 36415; 80053; 85025; 93005; 93010; 99283-25